=== PATIENT | female | born 1950 | race Caucasian/White ===

== ENCOUNTER 2020-04-21 10:59 | Emergency (ER) | payer MEDICARE, SELFPAY ==
[2020-04-21 11:22] VITALS: BP 148/75; PULSE 75; RESP 17; TEMP 36.6; O2SAT 96; BMI 36.3
--- NOTE | 2020-04-21 14:19 | PC.NURSE ---
RIGHT FOOT RE DRESSED WITH CLEAN DRY DRESSING.
--- NOTE | 2020-04-21 14:22 | ED_ITS ---
HPI - Extremity Problem General Chief complaint: Extremity Injury, Lower Stated complaint: ?blood clot Time Seen by Provider: 04/21/20 14:22 Source: patient and family Mode of arrival: ambulatory Limitations: no limitations History of Present Illness HPI Narrative: 69-year-old female who had right ankle/foot surgery for tib-fib fracture on March 24 at [facility] she subsequently has had followups they were seen there 2 days ago on 04/19 for suture removal was doing well there was some bruising so they sent her for ultrasound of the right lower extremity to rule out DVT today the [facility] question this and also daughter did not have the results called the facility times to the foot was slightly swollen so they became concerned the [facility] as to go to Urgent Care Urgent Care did not have ability to do ultrasound and given the swelling had some hard time finding pulses and did not have Doppler so she was sent here to the emergency room. Patient offers no complaints. Aside from mild swelling states she has been doing well. No discharge, redness, fever or chills. Upon arrival slight edema diffusely to the foot. She has lacerations to the dorsum of the foot medial aspect of the ankle. Sutures are absent. Site appears to be closing well. No dehiscence. Pulse is easy to palpate with Doppler done at bedside with RN. Daughter reports to me that she had an ultrasound done 2 days ago and she has been calling the orthopedics office however no call has been returned and she is concerned about the results. Complaint: extremity swelling Location: right Associated symptoms: denies other symptoms Related Data Allergies Allergy/AdvReac Type Severity Reaction Status Date / Time No Known Allergies Allergy Verified 04/21/20 11:25 Review of Systems Review of Systems: Constitutional: No Weight loss, No Fever, No Chills, No Night Sweats, No Fatigue, No Malaise ENT/Mouth: No Hearing loss, No Ear Pain, No Nasal Congestion, No Sinus Pain, No Hoarseness, No sore throat, No Rhinorrhea, No Swallowing Difficulty Eyes: No Eye Pain, No Swelling, No Redness, No Foreign Body, No Discharge, No Vision Changes Cardiovascular: No Chest Pain, No SOB, No Dyspnea on Exertion, No Orthopnea, No Edema, No Palpitations Respiratory: No Cough, No Sputum, No Wheezing, No Smoke Exposure, No Dyspnea Gastrointestinal: No Nausea, No Vomiting, No Diarrhea, No Constipation, No abdominal Pain, No Hematochezia, No Melena Genitourinary: no irregular bleeding, No Dysuria, No Urinary Frequency, No Hematuria, No Urinary Incontinence, No Urgency, No Flank Pain Musculoskeletal: No joint pain, No Myalgias, No Joint Swelling Skin: No Skin Lesions, No rash Neuro: No Weakness, No Numbness, No Paresthesias, No Loss of Consciousness, No Dizziness, No Headache Psych: No Social Issues Heme/Lymph: No Bruising, No Bleeding,No Lymphadenopathy Endocrine: No Polyuria, No Polydipsia, No Temperature Intolerance Yes all other systems are reviewed and are negative [facility] Social History Social History Advance Directives: No Advance Directives Information Provided: No Physical Exam Vital Signs: Vital Signs: Last Vital Signs Temp 97.9 F 04/21/20 11:22 Pulse 75 04/21/20 11:22 Resp 17 04/21/20 11:22 BP 148/75 H 04/21/20 11:22 Pulse Ox 96 04/21/20 11:22 Body Mass Index 36.3 Reviewed Const: General: cooperative and healthy appearing; No acute distress or intoxicated appearing Nutritional Appearance: average body habitus Orientation/consciousness: patient oriented x3 HENMT: Head: Yes normal to inspection Ears: hearing grossly normal bilaterally Chest: Chest palpation & inspection: normal inspection of the chest Resp: Effort & Inspection: normal respiratory effort Auscultation: clear to auscultation bilaterally Cardio: Jugular venous distension: no JVD Rhythm: regular rhythm Heart sounds: S1 normal heart sound present and S2 normal heart sound present GI: Inspection: Yes normal to inspection Percussion: Yes normal to perc ussion Auscultation: normal bowel sounds Skin: General skin exam: no rashes or lesions noted Neuro: General: patient oriented x3 Extrem: Other: Right lower extremity and ortho boot. Dressing in place removed revealing surgical site with Xeroform dressing. This was removed revealing healing site without any signs of infection. No erythema. Minimal swelling to the dorsum of the foot. Pulses again very easily palpable throughout. Cap refill within normal limits. General: Yes normal to inspection Course Course Course Narrative: Patient consented for records from the facility. Medical records received she had ultrasound of the right lower extremity for postoperative counts pain on 04/19/2020 (2 days ago there revealed that there was some subcutaneous edema. Impression no sonographic evidence of right lower extremity DVT. Copy of this was provided to the patient and daughter. Discharge Plan Discharge Clinical Impression: Right leg swelling Patient Disposition: Home, Self-Care Instructions: Leg Edema (ED) Additional Instructions: Pulses were within normal limits Ultrasound done did not show any evidence of blood clot in the leg The site appears to be healing well There is no site infection Elevate as much as possible The sutures removed by the surgeon 2 days ago Follow up as instructed with the orthopedic surgeon as discussed Return if any concerns or worsening symptoms Thank you Referrals: Physician,Unknown [Primary Care Provider] - 1 week (Your orthopedic surgeon at [facility] ) Interventions: ED Discharge Assessment Last Done: 04/21/20 14:30 Discharge Date/Time: 04/21/20 14:31
== END 2020-04-21 14:31 | disposition home or self-care (01) ==
PROVIDERS: Emergency Provider Emergency Medicine Emergency Medical Services
DX: R60.0 Localized edema (principal)
CPT/HCPCS: 99283